=== PATIENT | female | born 1945 ===

== ENCOUNTER 2020-10-15 09:56 | Emergency (ER) | payer MEDICARE, OTHER ==
[~2020-10-15] VITALS: Ht 154.9 cm; Wt 62.2 kg
--- NOTE | 2020-10-15 10:05 | NUR ---
PT BIBA FROM HOME IN [place]. PER EMS PT STARTED FEELING LIGHT HEADED AND NAUSEATED AROUND 0730 THIS MORNING. PT WAS GIVEN 4MG ZOFRAN FROM EMS WITH NO RELIEF. PER EMS BS WAS 90. PT DENIES ANY CP OR SOB, BUT STATES SHE IS STILL DIZZY AND NAUSEATED. PT REPORTS ONLY HX IS BACK PAIN/ SURGERIES AND BARRETTS ESOPHOGEAL. PT WAS HYPERTENSIVE (195/90) UPON ARRIVAL OF EMS, BP NOW IS 150/78. PT RESTING IN [facility], MONITORING IN PLACE, NADN AT THIS TIME, EDMD AT BEDSIDE FOR EVAL, EKG DONE, WCTM.
--- NOTE | 2020-10-15 11:14 | NUR ---
PT NOW C/O INTERMITTENT MONTES X2 WEEKS AND CONFUSION. DR.VAN BRIDGES AT BEDSIDE.
[2020-10-15 11:22] LABS: BASOPHILS % (AUTO) 1 % (0-1); EOSINOPHILS % (AUTO) 0 % (1-7); LYMPHOCYTES % (AUTO) 15 % (22-44); MEAN CORPUSCULAR HEMOGLOBIN 31.1 pg (27.0-34.8); MEAN CORPUSCULAR HGB CONC 34.5 g/dL (32.4-35.8); MEAN PLATELET VOLUME 8.3 fL (7.4-10.4); MONOCYTES % (AUTO) 5 % (2-9); NEUTROPHILS % (AUTO) 79 % (42-75); PLATELET COUNT 223 x10^3/uL (130-400); RED BLOOD COUNT 4.21 x10^6/uL (3.82-5.3); RED CELL DISTRIBUTION WIDTH 14.2 % (9.6-15.2)
[2020-10-15 11:28] LABS: ANION GAP 6 mmol/L (5-15); CALCIUM 9.3 mg/dL (8.5-10.1); CHLORIDE 112 mmol/L (98-107); CREATININE 0.51 mg/dL (0.55-1.02)
[2020-10-15 11:29] LABS: ALANINE AMINOTRANSFERASE 18 U/L (12-78); ALBUMIN 3.7 g/dL (3.4-5.0)
[2020-10-15 11:33] LABS: ALKALINE PHOSPHATASE 70 U/L (45-117); BILIRUBIN,TOTAL 0.3 mg/dL (0.2-1.0); TOTAL PROTEIN 6.9 g/dL (6.4-8.2); TROPONIN I < 0.015 ng/mL (0.000-0.045)
[2020-10-15 11:37] LABS: MICROSCOPIC NOT IND
--- NOTE | 2020-10-15 12:46 | NUR ---
report received from wesley rn, pt care transferred at this time. pt nad, chart up for recheck at this time. Patient is resting comfortably in bed. Bed in lowest, rails engaged, call light on lap. WCTM.
[2020-10-15 13:28] VITALS: BP 123/59
--- NOTE | 2020-10-15 13:29 | NUR ---
Patient given discharge instructions and they have confirmed that they understand the instructions. Patient ambulatory with steady gait. NAD, all questions answered appropriately, denies additional needs at this time. No personal belongings left in room after discharge. pt reports daughter in law is coming to pick her up for a ride home.
[2020-10-15] MEDS ORDERED: MECLIZINE CHEWABLE 25 MG TAB ONE (13:34)
[2020-10-15] MEDS ORDERED: MECLIZINE CHEWABLE 25 MG TAB PO ONE (14:00)
== END 2020-10-15 13:38 | disposition home or self-care (01) ==
LOC: ED 10:27
DX: R55 Syncope and collapse (principal); R53.1 Weakness; R11.0 Nausea; I10 Essential (primary) hypertension; Z87.891 Personal history of nicotine dependence
CPT/HCPCS: 36415; 80053; 81003; 84484; 85025; 93005; 99284